=== PATIENT | female | born 1975 | race Caucasian/White ===

== ENCOUNTER → 2017-02-09 | Outpatient (CLI) | payer OTHER ==
[~2017-02-09] MED LIST: NS 100 ML IV 100 ML IV ONE
--- NOTE | 2017-02-09 10:48 | CT ---
HEAD CT WITHOUT IV CONTRAST CLINICAL INDICATION: Dizziness and headaches TECHNIQUE: Axial CT images from skull base to vertex without IV contrast.Dose reduction techniques in cluding Automated Exposure Control (AEC) and adjustment of mA and kV were utlized. COMPARISON: None FINDINGS: There is no abnormal brain parenchymal density. There is no evidence of acute infarction, intracrani al hemorrhage, mass or mass effect, or abnormal extra-axial collection. The density of the larger dur al venous sinuses is normal. The ventricles are normal in size, shape and position. The skull base an d calvarium are normal. The included paranasal sinuses and mastoid air cells are predominantly clear. IMPRESSION: 1. No acute intracranial abnormality. Reported By:
== END ==
LOC: RAD 07:56
PROVIDERS: ATTEND Internal Medicine
DX: R42 Dizziness and giddiness (principal); R51 Headache; G47.39 Other sleep apnea
CPT/HCPCS: 70450; A4222